=== PATIENT | female | born 1970 | race Caucasian/White ===

== ENCOUNTER 2017-05-19 20:20 | Inpatient (IN) | payer OTHER ==
[2017-05-19] MEDS: SODIUM CHLOR 0.9% 1000 ML INJ 1,000 ML IV SCH (01:23)
[2017-05-19 21:00] VITALS: BP 140/78; PULSE 116; RESP 20; TEMP 99; O2SAT 98
--- NOTE | 2017-05-19 21:16 | PD ---
HPI Chief Complaint: psychiatric evaluation Time Seen by Provider: 21:04 Travel History International Travel<30 days: No Contact w/Intl Traveler<30days: No History of Present Illness HPI Patient comes in under police escort under a Anthony act for psychiatric evaluation. Per Anthony act patient "was feeling lonely. She was sending messages via social media. In those messages she was messing thinking of her weapon." Upon arrival per Anthony act patient was "found sleeping in her bed. Her weapon was found under her pillow loaded and charged. She states she had been drinking alcohol and admits she was an alcoholic." Upon myself entering the room patient is being belligerent. Patient states she is an alcoholic and is going to go through DTs soon if she does not get something for this. Patient states she drank 8-10 beers tonight. Patient states initially that she has not drank in several weeks until tonight. Patient later then states that she has had been sober for 2-3 weeks until the past week which she's been drinking again. Patient believes that she was Anthony acted secondary to the police finding the loaded gun under her pillow and states she is going to call the [employer] tomorrow to report this. Patient states that she has a concealed carry permit and has every right to have her gun. Patient denies any homicidal or suicidal ideations. Denies any medical concerns at this time. Denies any chest pain, shortness of breath, vomiting, fever, nausea, vomiting. Patient's only concern is that she's been going through withdrawal soon and she does not want to be here. Patient continues to be belligerent and argumentative with staff. Patient yelling and cursing at staff. Patient is hitting herself and the wall. FORMERLY [facility] Past Medical History Narrative Medical Alcoholism Social History Alcohol Use: Yes Tobacco Use: Yes Substance Use: No Allergies-Medications (Allergen,Severity, Reaction): Coded Allergies: Penicillins (Verified Allergy, Unknown, 05/19/17) acetaminophen (Verified Allergy, Unknown, 05/19/17) bee venom protein (honey bee) (Verified Allergy, Unknown, 05/19/17) oxycodone (Verified Allergy, Unknown, 05/19/17) strawberry (Verified Allergy, Unknown, 05/19/17) Reported Meds & Prescriptions Reported Meds & Active Scripts Active Active Prescriptions or Reported Medications Unobtainable Review of Systems ROS Limitations: Intoxication, Uncooperative Except as stated in HPI: all other systems reviewed are Neg Physical Exam Exam Limitations: Intoxication, Uncooperative Narrative GENERAL: Well-developed, well nourished, in no acute distress, and non-ill appearing. Belligerent, argumentative, and with aggressive behavior. SKIN: Focused skin assessment warm and dry. HEAD: Atraumatic. Normocephalic. EYES: Pupils equal and round. EOMI. No scleral icterus. No injection or drainage. ENT: No nasal bleeding or discharge. Mucous membranes pink and moist. NECK: Trachea midline. Supple. No nuclear rigidity. CARDIOVASCULAR: Regular rate and rhythm. No murmur appreciated. RESPIRATORY: No accessory muscle use. No respiratory distress. Clear to auscultation. Breath sounds equal bilaterally. MUSCULOSKELETAL: No obvious deformities. No clubbing. No cyanosis. No edema. Full range of motion. NEUROLOGICAL: Awake and alert. No obvious cranial nerve deficits. Motor grossly within normal limits. Normal speech. PSYCHIATRIC: Inappropriate mood and affect; insight and judgment abnormal. Data Data Last Documented VS Vital Signs Date Time Temp Pulse Resp B/P (MAP) Pulse Ox O2 Delivery O2 Flow Rate FiO2 05/19/17 22:28 114 16 125/68 (87) 97 Room Air 05/19/17 21:00 99.0 Orders Orders Complete Blood Count With Diff (05/19/17 21:04) Comprehensive Metabolic Panel (05/19/17 21:04) Urinalysis - C+S If Indicated (05/19/17 21:04) Psych Screen (05/19/17 21:04) Drug Screen, Random Urine (05/19/17 21:04) Alcohol (Ethanol) (05/19/17 21:04) Salicylates (Aspirin) (05/19/17 21:04) Tylenol (Acetaminophen) (05/19/17 21:04) Lorazepam Inj (Ativan Inj) (05/19/17 21:45) Lorazepam Inj (Ativan Inj) (05/19/17 21:45) Alcohol Withdrawal Asmt-Ciwa ONCE (05/19/17 22:00) Flumazenil Inj (Romazicon Inj) (05/19/17 22:00) Lorazepam (Ativan) (05/19/17 22:00) Lorazepam Inj (Ativan Inj) (05/19/17 22:00) Lorazepam (Ativan) (05/19/17 22:00) Lorazepam Inj (Ativan Inj) (05/19/17 22:00) Lorazepam Inj (Ativan Inj) (05/19/17 22:00) Lorazepam Inj (Ativan Inj) (05/19/17 22:00) Urine Culture (05/19/17 21:25) Aztreonam Inj (Azactam Inj) (05/19/17 22:17) Lactic Acid (05/19/17 22:19) Labs Laboratory Tests Test 05/19/17 21:25 05/19/17 22:48 White Blood Count 14.4 TH/MM3 Red Blood Count 5.72 MIL/MM3 Hemoglobin 17.2 GM/DL Hematocrit 51.3 % Mean Corpuscular Volume 89.8 FL Mean Corpuscular Hemoglobin 30.0 PG Mean Corpuscular Hemoglobin Concent 33.4 % Red Cell Distribution Width 14.6 % Platelet Count 355 TH/MM3 Mean Platelet Volume 7.2 FL Neutrophils (%) (Auto) 67.9 % Lymphocytes (%) (Auto) 24.7 % Monocytes (%) (Auto) 5.9 % Eosinophils (%) (Auto) 0.7 % Basophils (%) (Auto) 0.8 % Neutrophils # (Auto) 9.8 TH/MM3 Lymphocytes # (Auto) 3.6 TH/MM3 Monocytes # (Auto) 0.9 TH/MM3 Eosinophils # (Auto) 0.1 TH/MM3 Basophils # (Auto) 0.1 TH/MM3 CBC Comment DIFF FINAL Differential Comment Urine Color YELLOW Urine Turbidity HAZY Urine pH 5.5 Urine Specific [place] 1.004 Urine Protein TRACE mg/dL Urine Glucose (UA) NEG mg/dL Urine Ketones NEG mg/dL Urine Occult Blood LARGE Urine Nitrite NEG Urine Bilirubin NEG Urine Urobilinogen LESS THAN 2.0 MG/DL Urine Leukocyte Esterase TRACE Urine RBC 4 /hpf Urine WBC 3 /hpf Urine Squamous Epithelial Cells 4 /hpf Urine Amorphous Sediment RARE Urine Bacteria MOD /hpf Microscopic Urinalysis Comment CULTURE INDICATED Blood Urea Nitrogen 5 MG/DL Creatinine 0.68 MG/DL Random Glucose 115 MG/DL Total Protein 7.8 GM/DL Albumin 4.0 GM/DL Calcium Level 8.6 MG/DL Alkaline Phosphatase 92 U/L Aspartate Amino Transf (AST/SGOT) 18 U/L Alanine Aminotransferase (ALT/SGPT) 18 U/L Total Bilirubin 0.5 MG/DL Sodium Level 139 MEQ/L Potassium Level 4.3 MEQ/L Chloride Level 106 MEQ/L Carbon Dioxide Level 24.3 MEQ/L Anion Gap 9 MEQ/L Estimat Glomerular Filtration Rate 75 ML/MIN Salicylates Level 7.0 MG/DL Urine Opiates Screen NEG Acetaminophen Level LESS THAN 2.0 MCG/ML Urine Barbiturates Screen NEG Urine Amphetamines Screen NEG Urine Benzodiazepines Screen NEG Urine Cocaine Screen NEG Urine Cannabinoids Screen NEG Ethyl Alcohol Level 211 MG/DL MDM Medical Decision Making Medical Screen Exam Complete: Yes Emergency Medical Condition: Yes Differential Diagnosis Homicidal, suicidal, alcohol intoxication, substance abuse, UTI, electrolyte abnormality, dehydration, substance induced mood disorder, other Narrative Course Patient was seen and examined. Initial laboratory radiological studies were ordered. Due to the patient's continued progression of bilateral canals burst, progression, and became belligerent. Patient has been placed in restraints for safety of patient and staff. Before the patient escalated out of control further. Patient was also given a dose of Ativan. Patient was signed out to Dr. Mejia at the end of my shift pending laboratory results. Please see her documentation for final diagnosis and disposition. Scripts Unable to Obtain Active Prescriptions or Reported Meds Kushal Howe May 19, 2017 21:16
[2017-05-19] MEDS ORDERED: LORazepam 2 MG/ML VIAL IM ONE (21:45)
[2017-05-19] MEDS ORDERED: LORazepam 2 MG/ML VIAL IV PUSH ONE (21:45)
[2017-05-19 21:50] LABS: AUTOMATED NEUTROPHIL # 9.8 TH/MM3 (1.8-7.7); BASOPHIL # 0.1 TH/MM3 (0-0.2); BASOPHIL % 0.8 % (0.0-2.0); EOSINOPHIL # 0.1 TH/MM3 (0-0.4); EOSINOPHIL % 0.7 % (0.0-4.0); HEMATOCRIT 51.3 % (35.0-46.0); HEMO FLAGS DIFF FINAL; LYMPH % 24.7 % (9.0-44.0); LYMPHOCYTE # 3.6 TH/MM3 (1.0-4.8); MEAN CELL VOLUME 89.8 FL (80.0-100.0); MEAN CORPUSCULAR HGB CONC 33.4 % (32.0-36.0); MONO % 5.9 % (0.0-8.0); NEUT % 67.9 % (16.0-70.0); PLATELET COUNT 355 TH/MM3 (150-450); RED BLOOD COUNT 5.72 MIL/MM3 (4.00-5.30); RED CELL DISTRIBUTION WIDTH 14.6 % (11.6-17.2); WHITE BLOOD COUNT 14.4 TH/MM3 (4.0-11.0)
[2017-05-19 21:58] LABS: BACTERIA, URINE MOD /hpf; BLOOD, URINE LARGE (NEG); COMMENT (UR) CULTURE INDICATED; CULTURE IF INDICATED CULTURE INDICATED; GLUCOSE,URINE NEG (NEG); KETONE, URINE NEG (NEG); NITRITE,URINE NEG (NEG); PH, URINE 5.5 (5.0-8.5); SQUAMOUS EPITHELIAL CELL URINE 4 /hpf (0-5); URINE COLOR YELLOW (YELLW/STRAW)
[2017-05-19] MEDS ORDERED: FLUMAZENIL 0.5 MG/5 ML VIAL IV PUSH PRN (22:00)
[2017-05-19] MEDS ORDERED: LORazepam 2 MG/ML VIAL IV PUSH PRN ×2 (22:00)
[2017-05-19] MEDS ORDERED: LORazepam 2 MG TAB PO PRN (22:00)
[2017-05-19 22:10] LABS: ANION GAP 9 MEQ/L (5-15); BICARBONATE 24.3 MEQ/L (21.0-32.0); BLOOD UREA NITROGEN 5 MG/DL (7-18); CHLORIDE 106 MEQ/L (98-107); GLOMERULAR FILTRATION RATE 75 ML/MIN (>89); POTASSIUM 4.3 MEQ/L (3.5-5.1); SODIUM (NA) 139 MEQ/L (136-145)
[2017-05-19 22:11] LABS: ALCOHOL 211 MG/DL (0-5); ALT (GPT) 18 U/L (10-53); AST (GOT) 18 U/L (15-37)
[2017-05-19 22:13] LABS: ALKALINE PHOSPHATASE 92 U/L (45-117); TOTAL BILIRUBIN ADULT 0.5 MG/DL (0.2-1.0)
[2017-05-19] MEDS ORDERED: AZTREONAM INJ 1,000 MG in SODIUM CHLORIDE 0.9% INJ 100 ML IV STA (22:17)
[2017-05-19] MEDS: LORazepam 2 MG/ML VIAL IV PUSH PRN (22:21)
[2017-05-19 22:27] LABS: ACETAMINOPHEN LESS THAN 2.0 MCG/ML (10.0-30.0)
[2017-05-19 22:28] VITALS: BP 125/68; PULSE 114; RESP 16; O2SAT 97
--- NOTE | 2017-05-19 23:40 | HHI.HP ---
HPI Service [facility] Primary Care Physician Unknown Admission Diagnosis sepsis, alcohol intoxication Diagnoses: (1) Sepsis Diagnosis: Principal (2) UTI (urinary tract infection) Diagnosis: Principal (3) Dehydration Diagnosis: Principal (4) Suicidal ideation Diagnosis: Principal (5) Alcohol abuse Diagnosis: Principal (6) Tobacco abuse Diagnosis: Principal Travel History International Travel<30 Days: No Contact w/Intl Traveler <30 Da: No Traveled to Known Affected Are: No History of Present Illness This is a middle-aged white female w/ a PMH of Alcohol Abuse who was brought to the ER by Police under Anthony Act as a Dulce Bautista for Psych eval secondary to suicidal ideation. Per report, pt had been posting on social media that she was "feeling lonely" and made references to using a weapon. Police arrived at her home and found her sleeping w/ loaded gun underneath her pillow. Pt acutely intoxicated, reports drinking 8-10 beers, admits to drinking daily. 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 BP 140/78, HR 116, O2 sat 98 % on RA, Temp 99.0. WBC 14.4. GFR 75. Lactic Acid 3.5. UA positive for UTI. Urine Drug Screen negative. Alcohol 211. S/p Ativan, IVF and Azactam in ER. Review of Systems ROS: 14 point review of systems otherwise negative. Past Family Social History Past Medical History PMH: Alcohol Abuse Past Surgical History PAST SURGICAL HISTORY: Unknown Allergies: Coded Allergies: Penicillins (Verified Allergy, Unknown, 05/19/17) acetaminophen (Verified Allergy, Unknown, 05/19/17) bee venom protein (honey bee) (Verified Allergy, Unknown, 05/19/17) oxycodone (Verified Allergy, Unknown, 05/19/17) strawberry (Verified Allergy, Unknown, 05/19/17) Family History PAST FAMILY HISTORY: Reviewed. No h/o DM or CAD Social History PAST SOCIAL HISTORY: Drinks daily. Positive for tobacco. Negative for drugs. Physical Exam Vital Signs Vital Signs Date Time Temp Pulse Resp B/P (MAP) Pulse Ox O2 Delivery O2 Flow Rate FiO2 05/19/17 22:28 114 16 125/68 (87) 97 Room Air 05/19/17 21:00 99.0 116 20 140/78 (98) 98 Physical Exam PE: GENERAL: Middle-aged white female in no acute distress, intermittent episodes of agitation/yelling, soft restraints. HEENT: PERRLA, EOMI. No scleral icterus or conjunctival pallor. No lid lag or facial droop. CARDIOVASCULAR: Regular rate and rhythm. No obvious murmurs to auscultation. No chest tenderness to palpation. RESPIRATORY: No obvious rhonchi or wheezing. Clear to auscultation. Breath sounds equal bilaterally. GASTROINTESTINAL: Abdomen soft, non-tender, nondistended. BS normal. MUSCULOSKELETAL: Extremities without clubbing, cyanosis, or edema. No obvious deformities. NEUROLOGICAL: Awake, alert and oriented x4. No focal neurologic deficits. Moving both upper and lower extremities spontaneously. Laboratory Laboratory Tests Test 05/19/17 21:25 05/19/17 22:48 White Blood Count 14.4 Red Blood Count 5.72 Hemoglobin 17.2 Hematocrit 51.3 Mean Corpuscular Volume 89.8 Mean Corpuscular Hemoglobin 30.0 Mean Corpuscular Hemoglobin Concent 33.4 Red Cell Distribution Width 14.6 Platelet Count 355 Mean Platelet Volume 7.2 Neutrophils (%) (Auto) 67.9 Lymphocytes (%) (Auto) 24.7 Monocytes (%) (Auto) 5.9 Eosinophils (%) (Auto) 0.7 Basophils (%) (Auto) 0.8 Neutrophils # (Auto) 9.8 Lymphocytes # (Auto) 3.6 Monocytes # (Auto) 0.9 Eosinophils # (Auto) 0.1 Basophils # (Auto) 0.1 CBC Comment DIFF FINAL Differential Comment Urine Color YELLOW Urine Turbidity HAZY Urine pH 5.5 Urine Specific [place] 1.004 Urine Protein TRACE Urine Glucose (UA) NEG Urine Ketones NEG Urine Occult Blood LARGE Urine Nitrite NEG Urine Bilirubin NEG Urine Urobilinogen LESS THAN 2.0 Urine Leukocyte Esterase TRACE Urine RBC 4 Urine WBC 3 Urine Squamous Epithelial Cells 4 Urine Amorphous Sediment RARE Urine Bacteria MOD Microscopic Urinalysis Comment CULTURE INDICATED Blood Urea Nitrogen 5 Creatinine 0.68 Random Glucose 115 Total Protein 7.8 Albumin 4.0 Calcium Level 8.6 Alkaline Phosphatase 92 Aspartate Amino Transf (AST/SGOT) 18 Alanine Aminotransferase (ALT/SGPT) 18 Total Bilirubin 0.5 Sodium Level 139 Potassium Level 4.3 Chloride Level 106 Carbon Dioxide Level 24.3 Anion Gap 9 Estimat Glomerular Filtration Rate 75 Salicylates Level 7.0 Urine Opiates Screen NEG Acetaminophen Level LESS THAN 2.0 Urine Barbiturates Screen NEG Urine Amphetamines Screen NEG Urine Benzodiazepines Screen NEG Urine Cocaine Screen NEG Urine Cannabinoids Screen NEG Ethyl Alcohol Level 211 Lactic Acid Level 3.5 Date/Time Source Procedure Growth Status 05/19/17 21:25 Urine Clean Catch Urine Culture Pending Received Result Diagram: 05/19/17212405/19/172124 Caprini VTE Risk Assessment Caprini VTE Risk Assessment: No/Low Risk (score <= 1) Caprini Risk Assessment Model Point Value = 1 Point Value = 2 Point Value = 3 Point Value = 5 Age 41-60 Minor surgery BMI > 25 kg/m2 Swollen legs Varicose veins or History of unexplained or recurrent spontaneous Oral contraceptives or hormone replacement Sepsis (< 1 month) Serious lung disease, including pneumonia (< 1 month) Abnormal pulmonary function Acute myocardial infarction Congestive heart failure (< 1 month) History of inflammatory bowel disease Medical patient at bed rest Age 61-74 Arthroscopic surgery Major open surgery (> 45 min) Laparoscopic surgery (> 45 min) Malignancy Confined to bed (> 72 hours) Immobilizing plaster cast Central venous access Age >= 75 History of VTE Family history of VTE Factor V Leiden Prothrombin [id number] Lupus anticoagulant Anticardiolipin antibodies Elevated serum homocysteine Heparin-induced thrombocytopenia Other congenital or acquired thrombophilia Stroke (< 1 month) Elective arthroplasty Hip, pelvis, or leg fracture Acute spinal cord injury (< 1 month) Prophylaxis Regimen Total Risk Factor Score Risk Level Prophylaxis Regimen 0-1 Low Early ambulation 2 Moderate Order ONE of the following: *Sequential Compression Device (SCD) *Heparin 5000 units SQ BID 3-4 Higher Order ONE of the following medications: *Heparin 5000 units SQ TID *Enoxaparin/Lovenox 40 mg SQ daily (WT < 150 kg, CrCl > 30 mL/min) *Enoxaparin/Lovenox 30 mg SQ daily (WT < 150 kg, CrCl > 10-29 mL/min) *Enoxaparin/Lovenox 30 mg SQ BID (WT < 150 kg, CrCl > 30 mL/min) AND/OR *Sequential Compression Device (SCD) 5 or more Highest Order ONE of the following medications: *Heparin 5000 units SQ TID (Preferred with Epidurals) *Enoxaparin/Lovenox 40 mg SQ daily (WT < 150 kg, CrCl > 30 mL/min) *Enoxaparin/Lovenox 30 mg SQ daily (WT < 150 kg, CrCl > 10-29 mL/min) *Enoxaparin/Lovenox 30 mg SQ BID (WT < 150 kg, CrCl > 30 mL/min) AND *Sequential Compression Device (SCD) Assessment and Plan Problem List: (1) Sepsis ICD Code: A41.9 - Sepsis, unspecified organism Status: Acute (2) UTI (urinary tract infection) ICD Code: N39.0 - Urinary tract infection, site not specified Status: Acute (3) Dehydration ICD Code: E86.0 - Dehydration (4) Suicidal ideation ICD Code: R45.851 - Suicidal ideations (5) Alcohol abuse ICD Code: F10.10 - Alcohol abuse, uncomplicated (6) Tobacco abuse ICD Code: Z72.0 - Tobacco use Assessment and Plan A/P: 1. Sepsis: Temp 99.0, HR 116, WBC 14.4, Source-UTI. S/p Blood/Urine Cultures , Azactam in ER. Follow up cultures, continue IV Abx. Lactic Acid 3.5, will repeat. 2. UTI: U/a w/ UTI. S/p Blood/Urine cultures as above, will follow. Continue IV Abx. 3. Dehydration: GFR 75, BUN/Creat normal. IVF for hydration, repeat labs in am. 4. Suicidal Ideation: arrived under Anthony Act, made comments on social media w / suicidal ideation and referenced a weapon, found sleeping w/ loaded gun under her pillow. Sitter. Consult Psych for further eval. 5. Alcohol Abuse: w/ Acute Alcohol Intoxication. Alcohol 211. Admits to drinking 8-10 beers. CIWA, Seizure Precautions, MVT/Thiamine/Folate 6. Tobacco Abuse: Ativan/NicoDerm prn if needed. 7. DVT Prophylaxis: SCD/Teds. 8. Social work for d/c planning as needed. 9. Case discussed w/ ER physician at length. Physician Certification 2 Midnight Certification Type: Admission for Inpatient Services Order for Inpatient Services The services are ordered in accordance with Medicare regulations or non- Medicare payer requirements, as applicable. In the case of services not specified as inpatient-only, they are appropriately provided as inpatient services in accordance with the 2-midnight benchmark. Estimated LOS (days): 2 days is the estimated time the patient will need to remain in the hospital, assuming treatment plan goals are met and no additional complications. Post-Hospital Plan: Not yet determined Problem Qualifiers (1) Sepsis: Qualified Codes: A41.9 - Sepsis, unspecified organism (2) UTI (urinary tract infection): Qualified Codes: N39.0 - Urinary tract infection, site not specified Iesha Ramos MD May 19, 2017 23:40
[2017-05-19] MEDS ORDERED: LACTULOSE SYRUP 20 GM/30 ML CUP PO PRN (23:45)
[2017-05-19] MEDS ORDERED: MAGNESIUM HYDROXIDE SUSP 30 ML CUP PO PRN (23:45)
[2017-05-19] MEDS ORDERED: SODIUM CHLOR 0.9% 1000 ML INJ 1,000 ML IV ONE (23:45)
[2017-05-19] MEDS ORDERED: SENNOSIDES 8.6 MG TAB PO PRN (23:45)
[2017-05-19] MEDS ORDERED: ONDANSETRON HCL 4 MG/2 ML VIAL IVP PRN (23:45)
[2017-05-19] MEDS ORDERED: SODIUM CHLORIDE 0.9% FLUSH 10 ML FLUSH IV FLUSH PRN (23:45)
[2017-05-19] MEDS ORDERED: BISACODYL 10 MG SUPP RECTAL PRN (23:45)
[2017-05-19] MEDS: THIAMINE INJ 100 MG in SODIUM CHLORIDE 0.9% INJ 100 ML IV SCH (23:50)
--- NOTE | 2017-05-19 23:56 | PD ---
Physical Exam Narrative GENERAL: Well-nourished, well-developed patient. SKIN: Warm and dry. HEAD: Normocephalic and atraumatic. EYES: No injection or drainage. ENT: No nasal drainage noted. NECK: Supple, trachea midline. CARDIOVASCULAR: Regular rate and rhythm RESPIRATORY: no increased effort. No accessory muscle use. NEUROLOGICAL: Awake, moves all extremities, slurred speech Data Data Last Documented VS Vital Signs Date Time Temp Pulse Resp B/P (MAP) Pulse Ox O2 Delivery O2 Flow Rate FiO2 05/19/17 22:28 114 16 125/68 (87) 97 Room Air 05/19/17 21:00 99.0 Orders Orders Complete Blood Count With Diff (05/19/17 21:04) Comprehensive Metabolic Panel (05/19/17 21:04) Urinalysis - C+S If Indicated (05/19/17 21:04) Psych Screen (05/19/17 21:04) Drug Screen, Random Urine (05/19/17 21:04) Alcohol (Ethanol) (05/19/17 21:04) Salicylates (Aspirin) (05/19/17 21:04) Tylenol (Acetaminophen) (05/19/17 21:04) Lorazepam Inj (Ativan Inj) (05/19/17 21:45) Lorazepam Inj (Ativan Inj) (05/19/17 21:45) Alcohol Withdrawal Asmt-Ciwa ONCE (05/19/17 22:00) Flumazenil Inj (Romazicon Inj) (05/19/17 22:00) Lorazepam (Ativan) (05/19/17 22:00) Lorazepam Inj (Ativan Inj) (05/19/17 22:00) Lorazepam (Ativan) (05/19/17 22:00) Lorazepam Inj (Ativan Inj) (05/19/17 22:00) Lorazepam Inj (Ativan Inj) (05/19/17 22:00) Lorazepam Inj (Ativan Inj) (05/19/17 22:00) Urine Culture (05/19/17 21:25) Aztreonam Inj (Azactam Inj) (05/19/17 22:17) Lactic Acid (05/19/17 22:19) Restraints Violent (05/19/17 23:12) Blood Culture (05/19/17 23:32) Sodium Chlor 0.9% 1000 Ml Inj (Ns 1000 M (05/19/17 23:45) Ciprofloxacin 400 Mg Premix (Cipro 400 M (05/20/17 09:00) ^ Seizure Precautions (05/19/17 23:36) Folic Acid (Folate) (05/20/17 09:00) Multivitamins-Minerals Therap (Theragran (05/20/17 09:00) Consult Cm-Etoh Abuse Dc Plan (05/19/17 ) Consult Psychiatry (05/19/17 ) Admit To Inpatient (05/19/17 ) Vital Signs (Adult) Q4H (05/19/17 23:36) Activity Oob With Assistance (05/19/17 23:36) Talking Books Library Clerk / Telemetry .CONTINUOUS (05/19/17 23:36) Intake + Output KIMBERLEE.QSHIFT (05/19/17 23:36) Diet Regular Basic (05/20/17 Breakfast) Sodium Chlor 0.9% 1000 Ml Inj (Ns 1000 M (05/19/17 23:36) Sodium Chloride 0.9% Flush (Ns Flush) (05/19/17 23:45) Sodium Chloride 0.9% Flush (Ns Flush) (05/20/17 09:00) Ondansetron Inj (Zofran Inj) (05/19/17 23:45) Comprehensive Metabolic Panel (05/20/17 06:00) Complete Blood Count With Diff (05/20/17 06:00) Scd Bilateral/Knee High KIMBERLEE.BID (05/19/17 23:36) Daniel Bilateral/Knee High KIMBERLEE.QSHIFT (05/19/17 23:38) Docusate Sodium-Senna (Tomeka-Colace) (05/20/17 09:00) Magnesium Hydroxide Liq (Milk Of Magnesi (05/19/17 23:45) Sennosides (Senokot) (05/19/17 23:45) Bisacodyl Supp (Dulcolax Supp) (05/19/17 23:45) Lactulose Liq (Lactulose Liq) (05/19/17 23:45) Inpatient Certification (05/19/17 ) Lactic Acid (05/20/17 01:00) Admit Order (Ed Use Only) (05/19/17 23:39) Thiamine Inj (Thiamine Inj) (05/20/17 00:00) Labs Laboratory Tests Test 05/19/17 21:25 05/19/17 22:48 White Blood Count 14.4 TH/MM3 Red Blood Count 5.72 MIL/MM3 Hemoglobin 17.2 GM/DL Hematocrit 51.3 % Mean Corpuscular Volume 89.8 FL Mean Corpuscular Hemoglobin 30.0 PG Mean Corpuscular Hemoglobin Concent 33.4 % Red Cell Distribution Width 14.6 % Platelet Count 355 TH/MM3 Mean Platelet Volume 7.2 FL Neutrophils (%) (Auto) 67.9 % Lymphocytes (%) (Auto) 24.7 % Monocytes (%) (Auto) 5.9 % Eosinophils (%) (Auto) 0.7 % Basophils (%) (Auto) 0.8 % Neutrophils # (Auto) 9.8 TH/MM3 Lymphocytes # (Auto) 3.6 TH/MM3 Monocytes # (Auto) 0.9 TH/MM3 Eosinophils # (Auto) 0.1 TH/MM3 Basophils # (Auto) 0.1 TH/MM3 CBC Comment DIFF FINAL Differential Comment Urine Color YELLOW Urine Turbidity HAZY Urine pH 5.5 Urine Specific [place] 1.004 Urine Protein TRACE mg/dL Urine Glucose (UA) NEG mg/dL Urine Ketones NEG mg/dL Urine Occult Blood LARGE Urine Nitrite NEG Urine Bilirubin NEG Urine Urobilinogen LESS THAN 2.0 MG/DL Urine Leukocyte Esterase TRACE Urine RBC 4 /hpf Urine WBC 3 /hpf Urine Squamous Epithelial Cells 4 /hpf Urine Amorphous Sediment RARE Urine Bacteria MOD /hpf Microscopic Urinalysis Comment CULTURE INDICATED Blood Urea Nitrogen 5 MG/DL Creatinine 0.68 MG/DL Random Glucose 115 MG/DL Total Protein 7.8 GM/DL Albumin 4.0 GM/DL Calcium Level 8.6 MG/DL Alkaline Phosphatase 92 U/L Aspartate Amino Transf (AST/SGOT) 18 U/L Alanine Aminotransferase (ALT/SGPT) 18 U/L Total Bilirubin 0.5 MG/DL Sodium Level 139 MEQ/L Potassium Level 4.3 MEQ/L Chloride Level 106 MEQ/L Carbon Dioxide Level 24.3 MEQ/L Anion Gap 9 MEQ/L Estimat Glomerular Filtration Rate 75 ML/MIN Salicylates Level 7.0 MG/DL Urine Opiates Screen NEG Acetaminophen Level LESS THAN 2.0 MCG/ML Urine Barbiturates Screen NEG Urine Amphetamines Screen NEG Urine Benzodiazepines Screen NEG Urine Cocaine Screen NEG Urine Cannabinoids Screen NEG Ethyl Alcohol Level 211 MG/DL Lactic Acid Level 3.5 mmol/L MDM Supervised Visit with KURTIS: Yes Interpretation(s) CBC & BMP Diagram 05/19/17 21:25 Total Protein 7.8, Albumin 4.0, Calcium Level 8.6, Alkaline Phosphatase 92, Aspartate Amino Transf (AST/SGOT) 18, Alanine Aminotransferase (ALT/SGPT) 18, Total Bilirubin 0.5 ua with uti lactic acid 3.5 Narrative Course I, Dr. su, have reviewed the advance practice practitioner's documentation and am in agreement, met with the patient face to face, made the diagnosis, and the medical decision making was done by me. *My assessment and Findings: Female arrives under Anthony act and is acutely intoxicated here. Found with elevated white count and also has tachycardia and temperature is 99.0. Lactic acid added on and is 3.5. Will dose with aztreonam and give IV fluids and admit to medicine with psychiatry consultation. Patient updated. Ativan ordered to help sedate patient. Sepsis Criteria SIRS Criteria (2 or more): Heart rate over 90, WBC > 92953, < 4000 or > 10% bands Sepsis Criteria (SIRS+source): Infect source susp/known Severe Sepsis (+one): Lactate >2 Criteria Outcome: Meets severe sepsis criteria Physician Communication Physician Communication dr del cid agrees to admit Diagnosis Primary Impression: Sepsis Qualified Codes: A41.9 - Sepsis, unspecified organism Additional Impressions: UTI (urinary tract infection) Qualified Codes: N39.0 - Urinary tract infection, site not specified Altered mental status Qualified Codes: R41.82 - Altered mental status, unspecified Alcohol intoxication Qualified Codes: F10.920 - Alcohol use, unspecified with intoxication, uncomplicated Admitting Information Admitting Physician Requests: Admit Scripts Unable to Obtain Active Prescriptions or Reported Meds Pita Su MD May 19, 2017 23:56
[2017-05-20 00:45] VITALS: BP 118/67; PULSE 108; RESP 21; TEMP 97.5; O2SAT 99
[2017-05-20] MEDS: NICOTINE 14 MG/24 HR PATCH T-DERMAL SCH ×2 (02:12→10:03)
[2017-05-20] MEDS: LORazepam 2 MG/ML VIAL IV PUSH PRN ×5 (02:18→20:40)
[2017-05-20 04:00] VITALS: BP 128/60; PULSE 95; RESP 17; TEMP 98.9; O2SAT 98
[2017-05-20 04:36] LABS: AUTOMATED NEUTROPHIL # 11.3 TH/MM3 (1.8-7.7); BASOPHIL # 0.1 TH/MM3 (0-0.2); BASOPHIL % 0.9 % (0.0-2.0); EOSINOPHIL # 0.1 TH/MM3 (0-0.4); EOSINOPHIL % 0.8 % (0.0-4.0); HEMATOCRIT 43.6 % (35.0-46.0); HEMO FLAGS DIFF FINAL; LYMPH % 21.6 % (9.0-44.0); LYMPHOCYTE # 3.4 TH/MM3 (1.0-4.8); MEAN CELL VOLUME 88.9 FL (80.0-100.0); MEAN CORPUSCULAR HEMOGLOBIN 30.5 PG (27.0-34.0); MEAN CORPUSCULAR HGB CONC 34.3 % (32.0-36.0); MONO % 5.7 % (0.0-8.0); PLATELET COUNT 266 TH/MM3 (150-450); RED BLOOD COUNT 4.91 MIL/MM3 (4.00-5.30); RED CELL DISTRIBUTION WIDTH 14.4 % (11.6-17.2); WHITE BLOOD COUNT 15.9 TH/MM3 (4.0-11.0)
[2017-05-20 05:05] LABS: BICARBONATE 22.3 MEQ/L (21.0-32.0); CALCIUM-PROTEIN CORRECTED 7.8 MG/DL (8.5-10.1); POTASSIUM 3.6 MEQ/L (3.5-5.1); TOTAL BILIRUBIN ADULT 0.6 MG/DL (0.2-1.0)
--- NOTE | 2017-05-20 07:57 | HHI.PR ---
Subjective Remarks Patient seen and examined this morning. Her vitals are stable and she is afebrile. Sitting up eating breakfast. Reports neck pain. States its cold in her room. Wants to know when psych doctor will see her. Denies CP or difficulty breathing. States she understands why she is in the hospital. Objective Vital Signs Date Time Temp Pulse Resp B/P (MAP) Pulse Ox O2 Delivery O2 Flow Rate FiO2 05/20/17 04:00 98.9 95 17 128/60 (82) 98 05/20/17 00:45 97.5 108 21 118/67 (84) 99 05/19/17 22:28 114 16 125/68 (87) 97 Room Air 05/19/17 21:00 99.0 116 20 140/78 (98) 98 I/O 05/19/17 05/19/17 05/19/17 05/20/17 05/20/17 05/20/17 06:59 14:59 22:59 06:59 14:59 22:59 Intake Total 1240 ml Output Total 0 ml Balance 1240 ml Intake Oral 240 ml IV Total 1000 ml Output Urine Total 0 ml # Bowel Movements 0 Result Diagram: 05/20/17 0413 05/20/17 041 Objective Remarks GENERAL: well appearing female, nad SKIN: Warm and dry. HEAD: Normocephalic. EYES: No scleral icterus. No injection or drainage. NECK: Supple, trachea midline. No JVD or lymphadenopathy. CARDIOVASCULAR: Regular rate and rhythm without murmurs, gallops, or rubs. RESPIRATORY: Breath sounds equal bilaterally. No accessory muscle use. GASTROINTESTINAL: Abdomen soft, non-tender, nondistended. MUSCULOSKELETAL: No cyanosis, or edema. BACK: Nontender without obvious deformity. Reports some stiffness in upper back and neck. A/P Problem List: (1) Alcohol intoxication ICD Code: F10.929 - Alcohol use, unspecified with intoxication, unspecified Status: Acute (2) UTI (urinary tract infection) ICD Code: N39.0 - Urinary tract infection, site not specified Status: Acute (3) Suicidal ideation ICD Code: R45.851 - Suicidal ideations (4) Altered mental status ICD Code: R41.82 - Altered mental status, unspecified Status: Acute Assessment and Plan Middle-aged female admitted as a Dulce Bautista for suicidal ideation UTI: UA significant for moderate bacteria, and trace leukoesterase. Urine cultures pending. On admission concern was for sepsis given leukocytosis, tachycardia, lactic acidosis, and UA. Blood cultures are pending. - Currently on Cipro IV Dehydration: IV hydration with normal saline Suicidal ideation: Currently under Anthony act. Psych eval pending Alcohol abuse: [facility] protocol Tobacco abuse: Counseled, nicotine patch DVT prophy: bilat SCDs Discharge Planning DC pending improvement in mental status and psych eval Problem Qualifiers (1) Alcohol intoxication: Qualified Codes: F10.920 - Alcohol use, unspecified with intoxication, uncomplicated (2) UTI (urinary tract infection): Qualified Codes: N39.0 - Urinary tract infection, site not specified (3) Altered mental status: Qualified Codes: R41.82 - Altered mental status, unspecified Fifi Quevedo MD May 20, 2017 07:57
[2017-05-20 08:01] VITALS: BP 139/67; PULSE 91; RESP 18; TEMP 97.8; O2SAT 98
[2017-05-20] MEDS: SODIUM CHLORIDE 0.9% FLUSH 10 ML FLUSH IV FLUSH SCH ×2 (09:00→20:41)
[2017-05-20] MEDS: REMOVE OLD PATCH T-DERMAL SCH (09:00)
[2017-05-20] MEDS: DOCUSATE SODIUM 50 MG/SENNA 8.6 MG TAB PO SCH ×2 (09:00→20:41)
[2017-05-20] MEDS: CIPROFLOXACIN 400 MG PREMIX 200 ML IV SCH ×3 (10:02→21:00)
[2017-05-20] MEDS: MULTIVITAMINS/MINERALS THERAPEUTIC TAB PO SCH (10:03)
[2017-05-20] MEDS: FOLIC ACID 1 MG TAB PO SCH (10:03)
[2017-05-20 12:01] VITALS: BP 151/65; PULSE 96; RESP 18; TEMP 98.4; O2SAT 96
--- NOTE | 2017-05-20 15:12 | PD.PSY.CON ---
Provisional Diagnosis Admission Date May 19, 2017 at 23:41 [place]. Alcohol use disorder, alcohol induced mood disorder History of Present Illness Service Psychiatry Consult Requested By Reason for Consult Raj loredo Primary Care Physician Unknown HPI The patient is a middle-aged woman, she denies previous psychiatric history, she denies previous psychiatric hospitalizations, but reports history of alcohol use disorder, no significant medical history, who was brought to the ER by Police under Raj Loredo as a Dulce Bautista for Psych eval secondary to suicidal ideation. Per report, pt had been posting on social media that she was "feeling lonely" and made references to using a weapon in the context of alcohol intoxication. Police arrived at her home and found her sleeping w/ loaded gun underneath her pillow. Pt acutely intoxicated, reports drinking 8- 10 beers, admits to drinking daily. 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 BP 140/78, HR 116, O2 sat 98% on RA, Temp 99.0. WBC 14.4. GFR 75. Lactic Acid 3.5. UA positive for UTI. Urine Drug Screen negative. Alcohol 211. S/p Ativan, IVF and Azactam in ER. On psychiatric evaluation today patient is requesting to be discharged. She said that there is no reason to keep her in the hospital. She says that she has never made suicidal statements. On the evaluation patient is sexually inappropriate, exposing herself, was redirected. She says that she is to go because she has a date tonight. Patient reports drinking alcohol almost everyday. She denies history of withdrawal or DTs. At this moment patient seems to be irritable and manipulative, but she denies suicidal ideation, denies homicidal ideation, denies visual and auditory hallucinations. He is oriented history, no fluctuation of consciousness, attention deficit present. Review of Systems Except as stated in HPI: all other systems reviewed are Neg Past Family Social History Coded Allergies: Penicillins (Verified Allergy, Unknown, 05/19/17) acetaminophen (Verified Allergy, Unknown, 05/19/17) bee venom protein (honey bee) (Verified Allergy, Unknown, 05/19/17) oxycodone (Verified Allergy, Unknown, 05/19/17) strawberry (Verified Allergy, Unknown, 05/19/17) Unable to Obtain Active Prescriptions or Reported Meds Current Medications Medications (Trade) Dose Ordered Sig/Theodora Route Start Time Stop Time Status Last Admin (Romazicon Inj) 0.2 mg Q1M PRN IV PUSH 05/19/17 22:00 (Ativan) 1 mg Q4H PRN PO 05/19/17 22:00 (Ativan Inj) 1 mg Q4H PRN IV PUSH 05/19/17 22:00 05/20/17 06:29 (Ativan) 2 mg Q2H PRN PO 05/19/17 22:00 (Ativan Inj) 2 mg Q2H PRN IV PUSH 05/19/17 22:00 05/20/17 14:37 (Ativan Inj) 2 mg Q1H PRN IV PUSH 05/19/17 22:00 (Ativan Inj) 2 mg Q15M PRN IV PUSH 05/19/17 22:00 Ciprofloxacin/ Dextrose 200 ml @ 200 mls/hr Q12H IV 05/20/17 09:00 05/20/17 10:02 (Folate) 1 mg DAILY PO 05/20/17 09:00 05/25/17 08:59 05/20/17 10:03 (Theragran M Tab) 1 tab DAILY PO 05/20/17 09:00 05/25/17 08:59 05/20/17 10:03 Thiamine HCl 100 mg/Sodium Chloride 101 ml @ 100 mls/hr Q24H IV 05/20/17 00:00 05/22/17 01:01 05/19/17 23:50 Sodium Chloride 1,000 ml @ 100 mls/hr Q10H IV 05/19/17 23:36 05/19/17 01:23 (NS Flush) 2 ml UNSCH PRN IV FLUSH 05/19/17 23:45 (NS Flush) 2 ml BID IV FLUSH 05/20/17 09:00 (Zofran Inj) 4 mg Q6H PRN IVP 05/19/17 23:45 (Tomeka-Colace) 1 tab BID PO 05/20/17 09:00 (Milk Of Magnesia Liq) 30 ml Q12H PRN PO 05/19/17 23:45 (Senokot) 17.2 mg Q12H PRN PO 05/19/17 23:45 (Dulcolax Supp) 10 mg DAILY PRN RECTAL 10/13/17 23:45 (Lactulose Liq) 30 ml DAILY PRN PO 05/19/17 23:45 (Habitrol 14 Mg Patch.24 Hr) 1 patch DAILY T-DERMAL 05/20/17 02:15 05/20/17 10:03 Miscellaneous Information 1 DAILY T-DERMAL 05/20/17 09:00 05/20/17 09:00 Family Psych History Patient denies family psychiatric history Social History Patient was born and raised in [place], she lives alone in [place], she is unemployed, single, highest level of education is high school Patient's Strengths (min. 2) Verbal communication Physical Exam No tremors, no EPS, no agitation, no psychomotor retardation, no gait disturbances Vital Signs Vital Signs Date Time Temp Pulse Resp B/P (MAP) Pulse Ox O2 Delivery O2 Flow Rate FiO2 05/20/17 12:01 98.4 96 18 151/65 (93) 96 05/19/17 22:28 Room Air I/O 05/20/17 05/20/17 05/21/17 08:00 16:00 00:00 Intake Total 1240 ml Output Total 0 ml Balance 1240 ml Lab Results Test 05/19/17 21:25 05/19/17 22:48 05/20/17 04:13 White Blood Count 14.4 TH/MM3 15.9 TH/MM3 Red Blood Count 5.72 MIL/MM3 4.91 MIL/MM3 Hemoglobin 17.2 GM/DL 15.0 GM/DL Hematocrit 51.3 % 43.6 % Mean Corpuscular Volume 89.8 FL 88.9 FL Mean Corpuscular Hemoglobin 30.0 PG 30.5 PG Mean Corpuscular Hemoglobin Concent 33.4 % 34.3 % Red Cell Distribution Width 14.6 % 14.4 % Platelet Count 355 TH/MM3 266 TH/MM3 Mean Platelet Volume 7.2 FL 7.4 FL Neutrophils (%) (Auto) 67.9 % 71.0 % Lymphocytes (%) (Auto) 24.7 % 21.6 % Monocytes (%) (Auto) 5.9 % 5.7 % Eosinophils (%) (Auto) 0.7 % 0.8 % Basophils (%) (Auto) 0.8 % 0.9 % Neutrophils # (Auto) 9.8 TH/MM3 11.3 TH/MM3 Lymphocytes # (Auto) 3.6 TH/MM3 3.4 TH/MM3 Monocytes # (Auto) 0.9 TH/MM3 0.9 TH/MM3 Eosinophils # (Auto) 0.1 TH/MM3 0.1 TH/MM3 Basophils # (Auto) 0.1 TH/MM3 0.1 TH/MM3 CBC Comment DIFF FINAL DIFF FINAL Differential Comment Urine Color YELLOW Urine Turbidity HAZY Urine pH 5.5 Urine Specific [place] 1.004 Urine Protein TRACE mg/dL Urine Glucose (UA) NEG mg/dL Urine Ketones NEG mg/dL Urine Occult Blood LARGE Urine Nitrite NEG Urine Bilirubin NEG Urine Urobilinogen LESS THAN 2.0 MG/DL Urine Leukocyte Esterase TRACE Urine RBC 4 /hpf Urine WBC 3 /hpf Urine Squamous Epithelial Cells 4 /hpf Urine Amorphous Sediment RARE Urine Bacteria MOD /hpf Microscopic Urinalysis Comment CULTURE INDICATED Blood Urea Nitrogen 5 MG/DL 6 MG/DL Creatinine 0.68 MG/DL 0.54 MG/DL Random Glucose 115 MG/DL 64 MG/DL Total Protein 7.8 GM/DL 6.4 GM/DL Albumin 4.0 GM/DL 3.2 GM/DL Calcium Level 8.6 MG/DL 7.4 MG/DL Alkaline Phosphatase 92 U/L 85 U/L Aspartate Amino Transf (AST/SGOT) 18 U/L 16 U/L Alanine Aminotransferase (ALT/SGPT) 18 U/L 18 U/L Total Bilirubin 0.5 MG/DL 0.6 MG/DL Sodium Level 139 MEQ/L 140 MEQ/L Potassium Level 4.3 MEQ/L 3.6 MEQ/L Chloride Level 106 MEQ/L 110 MEQ/L Carbon Dioxide Level 24.3 MEQ/L 22.3 MEQ/L Anion Gap 9 MEQ/L 8 MEQ/L Estimat Glomerular Filtration Rate 75 ML/MIN 97 ML/MIN Salicylates Level 7.0 MG/DL Urine Opiates Screen NEG Acetaminophen Level LESS THAN 2.0 MCG/ML Urine Barbiturates Screen NEG Urine Amphetamines Screen NEG Urine Benzodiazepines Screen NEG Urine Cocaine Screen NEG Urine Cannabinoids Screen NEG Ethyl Alcohol Level 211 MG/DL Lactic Acid Level 3.5 mmol/L 2.2 mmol/L Protein Corrected Calcium 7.8 MG/DL Date/Time Source Procedure Growth Status 05/19/17 23:50 Blood Peripheral Aerobic Blood Culture Pending Received 05/19/17 23:50 Blood Peripheral Anaerobic Blood Culture Pending Received 05/19/17 21:25 Urine Clean Catch Urine Culture - Preliminary RESULTS PENDING Resulted Mental Status Examination Appearance: Appropriate Consciousness: Alert Orientation: x4 Motor Activity: Normal gait Speech: Unremarkable Language: Adequate Fund of Knowledge: Adequate Attention and Concentration: Adequate Memory: Unremarkable Mood: Appropriate Affect: Appropriate Thought Process & Associations: Intact Thought Content: Appropriate Hallucination Type: None Delusion Type: None Suicidal Ideation: No Suicidal Plan: No Suicidal Intention: No Homicidal Ideation: No Homicidal Plan: No Homicidal Intention: No Insight: Adequate Judgment: Adequate Assessment & Plan Problem List: (1) Alcohol abuse with alcohol-induced mood disorder ICD Codes: F10.14 - Alcohol abuse with alcohol-induced mood disorder Assessment & Plan: On psychiatric evaluation today the patient denies symptomatology of depression, anxiety, sonja or psychosis. Denies suicidal and homicidal ideation, she denies visual and auditory hallucinations. Patient is logical, coherent and relevant. She is irritable, oppositional and demanding, also manipulative and sexually inappropriate, but this seems to be part of her character. Recent suicidal statement reported by Raj loredo is to be mostly related with alcohol intoxication rather than secondary to a major psychiatric condition decompensation. She does not meet criteria for psychiatric admission at this moment. She is psychiatrically cleared to continue her medical care. Continue [facility]WA protocol. Brief supportive psychotherapy, motivation psycho education provided. Anthony act will be lifted. Assessment & Plan Estimated LOS: Luciano Otoole MD May 20, 2017 15:12
[2017-05-20 16:05] VITALS: BP 113/59; PULSE 92; RESP 17; TEMP 98.4; O2SAT 97
[2017-05-20] MEDS: SODIUM CHLOR 0.9% 1000 ML INJ 1,000 ML IV SCH (19:36)
[2017-05-20 20:00] VITALS: BP 151/66; PULSE 92; RESP 20; TEMP 98.5; O2SAT 98
[2017-05-21] VITALS: BP 137/63; PULSE 93; RESP 18; TEMP 97.8; O2SAT 99
[2017-05-21] MEDS: THIAMINE INJ 100 MG in SODIUM CHLORIDE 0.9% INJ 100 ML IV SCH (00:23)
[2017-05-21 04:00] VITALS: BP 128/60; PULSE 80; RESP 18; TEMP 98; O2SAT 97
[2017-05-21] MEDS: SODIUM CHLOR 0.9% 1000 ML INJ 1,000 ML IV SCH (04:05)
--- NOTE | 2017-05-21 07:12 | HHI.PR ---
Subjective Remarks Patient seen and examined this morning. Her vitals are stable and she is afebrile. Sleeping comfortably. Says her throat is sore. Objective Vital Signs Date Time Temp Pulse Resp B/P (MAP) Pulse Ox O2 Delivery O2 Flow Rate FiO2 05/21/17 04:00 98.0 80 18 128/60 (82) 97 05/21/17 00:00 97.8 93 18 137/63 (87) 99 05/20/17 20:00 98.5 92 20 151/66 (94) 98 05/20/17 16:05 98.4 92 17 113/59 (77) 97 05/20/17 12:01 98.4 96 18 151/65 (93) 96 05/20/17 08:01 97.8 91 18 139/67 (91) 98 I/O 05/20/17 05/20/17 05/20/17 05/21/17 05/21/17 05/21/17 06:59 14:59 22:59 06:59 14:59 22:59 Intake Total 1240 ml 600 ml 1000 ml Output Total 0 ml Balance 1240 ml 600 ml 1000 ml Intake Oral 240 ml 600 ml IV Total 1000 ml 1000 ml Output Urine Total 0 ml # Voids 4 # Bowel Movements 0 1 Result Diagram: 05/20/17 0413 05/20/17 041 Objective Remarks GENERAL: well appearing female, nad SKIN: Warm and dry. Multiple bruises of upper extremities. HEAD: Normocephalic. EYES: No scleral icterus. No injection or drainage. NECK: Supple, trachea midline. No JVD or lymphadenopathy. CARDIOVASCULAR: Regular rate and rhythm without murmurs, gallops, or rubs. RESPIRATORY: Breath sounds equal bilaterally. No accessory muscle use. GASTROINTESTINAL: Abdomen soft, non-tender, nondistended. MUSCULOSKELETAL: No cyanosis, or edema. No calf tenderness. BACK: Nontender without obvious deformity. Reports some stiffness in upper back and neck. A/P Problem List: (1) Alcohol intoxication ICD Code: F10.929 - Alcohol use, unspecified with intoxication, unspecified Status: Acute (2) UTI (urinary tract infection) ICD Code: N39.0 - Urinary tract infection, site not specified Status: Acute (3) Suicidal ideation ICD Code: R45.851 - Suicidal ideations (4) Altered mental status ICD Code: R41.82 - Altered mental status, unspecified Status: Acute Assessment and Plan Middle-aged female admitted as a Dulce Bautista for suicidal ideation UTI: UA significant for moderate bacteria, and trace leukoesterase. On admission concern was for sepsis given leukocytosis, tachycardia, lactic acidosis, and UA. - Blood cultures neg x 1 day - Urine cultures pending - Currently on Cipro IV Dehydration: IV hydration with normal saline Suicidal ideation: Anthony Act Lifted. Does not meet inpatient psych criteria. Alcohol abuse: [facility] protocol Tobacco abuse: Counseled, nicotine patch DVT prophy: bilat SCDs Discharge Planning Has been evaluated by [facility]. Admitted as sepsis, will follow blood cultures, patient can likely be discharged tomorrow when they are negative x 48 hrs. Anticipate D/C tomorrow. Problem Qualifiers (1) Alcohol intoxication: Qualified Codes: F10.920 - Alcohol use, unspecified with intoxication, uncomplicated (2) UTI (urinary tract infection): Qualified Codes: N39.0 - Urinary tract infection, site not specified (3) Altered mental status: Qualified Codes: R41.82 - Altered mental status, unspecified Fifi Quevedo MD May 21, 2017 07:12
[2017-05-21 08:00] VITALS: BP 118/67; PULSE 89; RESP 16; TEMP 98; O2SAT 99
[2017-05-21] MEDS: NICOTINE 14 MG/24 HR PATCH T-DERMAL SCH (09:00)
[2017-05-21] MEDS: REMOVE OLD PATCH T-DERMAL SCH (09:00)
[2017-05-21] MEDS: SODIUM CHLORIDE 0.9% FLUSH 10 ML FLUSH IV FLUSH SCH ×2 (09:00→20:14)
[2017-05-21] MEDS: DOCUSATE SODIUM 50 MG/SENNA 8.6 MG TAB PO SCH ×2 (09:00→20:14)
[2017-05-21] MEDS: MULTIVITAMINS/MINERALS THERAPEUTIC TAB PO SCH (09:04)
[2017-05-21] MEDS: FOLIC ACID 1 MG TAB PO SCH (09:04)
[2017-05-21] MEDS: CIPROFLOXACIN 400 MG PREMIX 200 ML IV SCH ×2 (09:04→20:14)
[2017-05-21] MEDS: LORazepam 2 MG/ML VIAL IV PUSH PRN ×2 (09:11→14:56)
[2017-05-21 09:18] LABS: AUTOMATED NEUTROPHIL # 5.2 TH/MM3 (1.8-7.7); BASOPHIL # 0.1 TH/MM3 (0-0.2); BASOPHIL % 0.7 % (0.0-2.0); EOSINOPHIL # 0.2 TH/MM3 (0-0.4); EOSINOPHIL % 2.1 % (0.0-4.0); HEMATOCRIT 41.5 % (35.0-46.0); HEMO FLAGS DIFF FINAL; LYMPH % 21.4 % (9.0-44.0); LYMPHOCYTE # 1.7 TH/MM3 (1.0-4.8); MEAN CORPUSCULAR HEMOGLOBIN 30.4 PG (27.0-34.0); MEAN CORPUSCULAR HGB CONC 33.8 % (32.0-36.0); MONO % 8.5 % (0.0-8.0); NEUT % 67.3 % (16.0-70.0); PLATELET COUNT 230 TH/MM3 (150-450); RED BLOOD COUNT 4.61 MIL/MM3 (4.00-5.30); RED CELL DISTRIBUTION WIDTH 14.4 % (11.6-17.2); WHITE BLOOD COUNT 7.7 TH/MM3 (4.0-11.0)
[2017-05-21 10:07] LABS: BICARBONATE 21.1 MEQ/L (21.0-32.0); POTASSIUM 3.5 MEQ/L (3.5-5.1)
[2017-05-21 12:00] VITALS: BP 113/55; PULSE 87; RESP 16; TEMP 98; O2SAT 98
[2017-05-21 16:00] VITALS: BP 115/56; PULSE 84; RESP 18; TEMP 98.5; O2SAT 98
[2017-05-21 20:00] VITALS: BP 100/55; PULSE 87; RESP 16; TEMP 98.2; O2SAT 99
[2017-05-21] MEDS: LORazepam 1 MG TAB PO PRN (20:18)
[2017-05-22] VITALS: BP 132/69; PULSE 77; RESP 16; TEMP 97.9; O2SAT 98
[2017-05-22] MEDS: THIAMINE INJ 100 MG in SODIUM CHLORIDE 0.9% INJ 100 ML IV SCH (00:06)
[2017-05-22] MEDS: LORazepam 1 MG TAB PO PRN ×3 (00:06→10:04)
[2017-05-22 04:00] VITALS: BP 138/74; PULSE 80; RESP 16; TEMP 98.3; O2SAT 98
[2017-05-22] MEDS: SODIUM CHLOR 0.9% 1000 ML INJ 1,000 ML IV SCH (04:46)
[2017-05-22 06:11] LABS: AUTOMATED NEUTROPHIL # 10.8 TH/MM3 (1.8-7.7); BASOPHIL # 0.1 TH/MM3 (0-0.2); BASOPHIL % 0.7 % (0.0-2.0); EOSINOPHIL # 0.1 TH/MM3 (0-0.4); EOSINOPHIL % 0.9 % (0.0-4.0); HEMO FLAGS DIFF FINAL; LYMPH % 17.5 % (9.0-44.0); LYMPHOCYTE # 2.5 TH/MM3 (1.0-4.8); MEAN CORPUSCULAR HEMOGLOBIN 29.8 PG (27.0-34.0); MEAN CORPUSCULAR HGB CONC 33.1 % (32.0-36.0); MONO % 6.1 % (0.0-8.0); NEUT % 74.8 % (16.0-70.0); PLATELET COUNT 224 TH/MM3 (150-450); RED BLOOD COUNT 4.56 MIL/MM3 (4.00-5.30); RED CELL DISTRIBUTION WIDTH 13.8 % (11.6-17.2); WHITE BLOOD COUNT 14.5 TH/MM3 (4.0-11.0)
[2017-05-22 08:00] VITALS: BP 134/71; PULSE 85; RESP 20; TEMP 97.7; O2SAT 98
[2017-05-22] MEDS: REMOVE OLD PATCH T-DERMAL SCH (09:00)
[2017-05-22] MEDS: FOLIC ACID 1 MG TAB PO SCH (10:04)
[2017-05-22] MEDS: CIPROFLOXACIN 400 MG PREMIX 200 ML IV SCH (10:04)
[2017-05-22] MEDS: MULTIVITAMINS/MINERALS THERAPEUTIC TAB PO SCH (10:04)
[2017-05-22] MEDS: DOCUSATE SODIUM 50 MG/SENNA 8.6 MG TAB PO SCH (10:04)
[2017-05-22] MEDS: SODIUM CHLORIDE 0.9% FLUSH 10 ML FLUSH IV FLUSH SCH (10:04)
[2017-05-22] MEDS: NICOTINE 14 MG/24 HR PATCH T-DERMAL SCH (10:05)
--- NOTE | 2017-05-22 11:04 | HHI.DCPOC ---
Discharge Care Plan Diagnosis: (1) Alcohol abuse with alcohol-induced mood disorder (2) Tobacco abuse (3) Dehydration (4) Anxiety Goals to Promote Your Health * To prevent worsening of your condition and complications * To maintain your health at the optimal level Directions to Meet Your Goals Take your medications as prescribed Follow your dietary instruction Follow activity as directed Keep your appointments as scheduled Take your immunizations and boosters as scheduled If your symptoms worsen call your PCP, if no PCP go to Urgent Care Center or Emergency Room Smoking is Dangerous to Your Health. Avoid second hand smoke Call the 24-hour hour crisis hotline for domestic abuse at Lillian Haynes MD May 22, 2017 11:04
--- NOTE | 2017-05-22 11:15 | HHI.DS ---
Discharge Summary Admission Date May 19, 2017 at 23:41 Discharge Date: May 22, 2017 Admitting Diagnosis sepsis, alcohol intoxication (1) Sepsis ICD Code: A41.9 - Sepsis, unspecified organism Status: Acute (2) UTI (urinary tract infection) ICD Code: N39.0 - Urinary tract infection, site not specified Status: Acute (3) Dehydration ICD Code: E86.0 - Dehydration (4) Suicidal ideation ICD Code: R45.851 - Suicidal ideations (5) Alcohol abuse ICD Code: F10.10 - Alcohol abuse, uncomplicated (6) Tobacco abuse ICD Code: Z72.0 - Tobacco use Procedures None Brief History - From Admission HPI from the admitting physician. This is a middle-aged white female w/ a PMH of Alcohol Abuse who was brought to the ER by Police under Anthony Act as a Dulce Bautista for Psych eval secondary to suicidal ideation. Per report, pt had been posting on social media that she was "feeling lonely" and made references to using a weapon. Police arrived at her home and found her sleeping w/ loaded gun underneath her pillow. Pt acutely intoxicated, reports drinking 8-10 beers, admits to drinking daily. 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 BP 140/78, HR 116, O2 sat 98 % on RA, Temp 99.0. WBC 14.4. GFR 75. Lactic Acid 3.5. UA positive for UTI. Urine Drug Screen negative. Alcohol 211. S/p Ativan, IVF and Azactam in ER. CBC/BMP: 05/22/17 0515 05/21/17 0845 Significant Findings Laboratory Tests Test 05/19/17 21:25 05/19/17 22:48 05/20/17 04:13 05/21/17 08:45 White Blood Count 14.4 TH/MM3 (4.0-11.0) 15.9 TH/MM3 (4.0-11.0) Red Blood Count 5.72 MIL/MM3 (4.00-5.30) Hemoglobin 17.2 GM/DL (11.6-15.3) Hematocrit 51.3 % (35.0-46.0) Neutrophils # (Auto) 9.8 TH/MM3 (1.8-7.7) 11.3 TH/MM3 (1.8-7.7) Urine Turbidity HAZY (CLEAR) Urine Occult Blood LARGE (NEG) Urine Leukocyte Esterase TRACE (NEG) Urine RBC 4 /hpf (0-3) Urine Bacteria MOD /hpf (NONE) Blood Urea Nitrogen 5 MG/DL (7-18) 6 MG/DL (7-18) 6 MG/DL (7-18) Random Glucose 115 MG/DL (74-106) 64 MG/DL (74-106) Estimat Glomerular Filtration Rate 75 ML/MIN (>89) Acetaminophen Level LESS THAN 2.0 MCG/ML Ethyl Alcohol Level 211 MG/DL (0-5) Lactic Acid Level 3.5 mmol/L (0.4-2.0) 2.2 mmol/L (0.4-2.0) Neutrophils (%) (Auto) 71.0 % (16.0-70.0) Albumin 3.2 GM/DL (3.4-5.0) Calcium Level 7.4 MG/DL (8.5-10.1) 8.3 MG/DL (8.5-10.1) Chloride Level 110 MEQ/L (98-107) 109 MEQ/L (98-107) Protein Corrected Calcium 7.8 MG/DL (8.5-10.1) Monocytes (%) (Auto) 8.5 % (0.0-8.0) Creatinine 0.46 MG/DL (0.50-1.00) Test 05/22/17 05:15 White Blood Count 14.5 TH/MM3 (4.0-11.0) Neutrophils (%) (Auto) 74.8 % (16.0-70.0) Neutrophils # (Auto) 10.8 TH/MM3 (1.8-7.7) PE at Discharge GENERAL: This is a well-nourished, well-developed patient, in no apparent distress. CARDIOVASCULAR: Normal rate and regular rhythm without murmurs, gallops, or rubs. RESPIRATORY: Good respiratory efforts. Breath sounds equal and clear to auscultation bilaterally. GASTROINTESTINAL: Abdomen soft, non-tender, non-distended. Normal active bowel sounds MUSCULOSKELETAL: Extremities without cyanosis, or edema. NEURO: Alert & Oriented x4 to person, place, time, situation. Moves all ext x4 PSYCH: Irritable Pt update on day of discharge Patient reports she may stop drinking today but will likely continue to drink. She states that anxiety medications does not work for her. Hospital Course 46-year-old female presented to the hospital under Anthony act for suicidal ideation. There were concerns for sepsis on admission. Apparently the patient has issue with alcohol dependence. Her urinalysis was abnormal, therefore she was started on ciprofloxacin IV. Her urine cultures only shows mixed jossy. She is asymptomatic. Therefore antibiotics were discontinued. Patient was hydrated with IV fluid. She no longer showed signs of sepsis. The patient was evaluated by psychiatry. The Anthony act was lifted. Initially treated per [facility] protocol for alcohol withdrawal. Unfortunately the patient states she will continue to drink alcohol after discharge. I extensively discussed the detrimental effects of alcohol on her health. Unfortunately, she appears to be very manipulative as noted by the psychiatrist and not interested in improving her health at this point in time. She didn't inquire about benzodiazepine, noting that no other anxiety medications work for her. I do not feel comfortable prescribing her any benzodiazepines knowing she will continue to drink alcohol. I advised the patient to follow-up with her primary care physician to consider other anxiolytic medications. The patient was also counseled regarding tobacco abuse and the need to quit Pt Condition on Discharge: Stable Discharge Disposition: Discharge Home Discharge Time: <= 30 minutes Discharge Instructions DIET: Follow Instructions for: As Tolerated, No Restrictions Activities you can perform: Regular-No Restrictions Follow up Referrals: PCP Follow-up - 1 Week Lillian Haynes MD May 22, 2017 11:15
[2017-05-22 12:00] VITALS: BP 125/58; PULSE 94; RESP 20; TEMP 98.2; O2SAT 97
== END 2017-05-22 11:50 | disposition home or self-care (01) | DRG 896 ==
LOC: NEDAMB 20:20 → NEDA 23:41 → EDBD 23:41 → N04B 05-20 00:32
PROVIDERS: ADMIT Family Medicine; ATTEND Family Medicine
DX: F10.24 Alcohol dependence with alcohol-induced mood disorder (principal); A41.9 Sepsis, unspecified organism; R45.851 Suicidal ideations; Z78.1 Physical restraint status; N39.0 Urinary tract infection, site not specified; F10.229 Alcohol dependence with intoxication, unspecified; Y90.7 Blood alcohol level of 200-239 mg/100 ml; E86.0 Dehydration; F41.9 Anxiety disorder, unspecified; Z72.0 Tobacco use
CPT/HCPCS: 76937; 80048; 80053; 80307; 81001; 83605; 85025; 87040; 87086; 96374; 96375; J0744; J2060; J3411; J7030